=== PATIENT | male | born 1960 | race Caucasian/White ===

== ENCOUNTER 2016-12-25 13:15 | Emergency (ER) | payer BC ==
[~2016-12-25] VITALS: Ht 177.8 cm; Wt 108.0 kg
[2016-12-25 15:20] VITALS: BP 122/89
[2016-12-25] MEDS ORDERED: SODIUM CHLORIDE 0.9% 250 ML IV ONE (15:50)
[2016-12-25] MEDS ORDERED: METOCLOPRAMIDE HCL 5MG/ml INJ 2ml VIAL IV ONE (16:00)
[2016-12-25] MEDS ORDERED: KETOROLAC TROMETH 30 MG/ML 1ML VIAL IV ONE (16:00)
[2016-12-25 16:41] LABS: Basophils # (auto) 0 uL; Basophils % (auto) 0.3 % (0.0-2.0); CONDITION AutoValidated; Eosinophils # (auto) 0.1 uL; Eosinophils % (auto) 0.7 % (0.0-7.0); Hematocrit 44.3 % (41.0-53.0); Lymphocytes % (auto) 11.9 % (10.0-50.0); Mean Corpuscular Hemoglobin 29.4 pg (28.0-32.0); Mean Corpuscular Hgb Conc. 33.8 g/dL (32.0-36.0); Mean Corpuscular Volume 87.1 fL (80.0-100.0); Mean Platelet Volume 7.9 fL (7.4-10.4); Monocytes # (auto) 1.3 uL; Monocytes % (auto) 7.6 % (0.0-12.0); Neutrophils # (auto) 13.3 uL; Neutrophils % (auto) 79.5 % (37.0-80.0); Platelet Count (auto) 279 10^3/uL (140-450); Red Cell Distribution Width 13.6 % (11.6-16.0); White Blood Cell 16.7 10^3/uL (4.4-10.8)
[2016-12-25 16:53] LABS: Calcium 8.5 mg/dL (8.5-10.1); Magnesium 2.2 mg/dL (1.6-2.6); Potassium 3.6 mmol/L (3.5-5.1)
== END 2016-12-25 18:08 | disposition home or self-care (01) ==
LOC: ER 13:15
DX: N45.1 Epididymitis (principal); N43.3 Hydrocele, unspecified; Z88.0 Allergy status to penicillin; Z88.1 Allergy status to other antibiotic agents
CPT/HCPCS: 36415; 76870; 80048; 83735; 85025; 96361; 96374; 96375; 99285; J1885; J2765; J7030

== ENCOUNTER → 2017-01-06 | Outpatient (CLI) | payer BC ==
[2017-01-06 08:39] LABS: Basophils # (auto) 0 uL; Basophils % (auto) 0.7 % (0.0-2.0); CONDITION Y; Eosinophils # (auto) 0.3 uL; Eosinophils % (auto) 4.6 % (0.0-7.0); Hematocrit 44.3 % (41.0-53.0); Hemoglobin 15.1 g/dL (13.5-17.5); Lymphocytes # (auto) 2.5 uL; Lymphocytes % (auto) 36.9 % (10.0-50.0); Mean Corpuscular Hemoglobin 29.4 pg (28.0-32.0); Mean Corpuscular Hgb Conc. 34.1 g/dL (32.0-36.0); Mean Corpuscular Volume 86.3 fL (80.0-100.0); Monocytes # (auto) 0.4 uL; Monocytes % (auto) 6.1 % (0.0-12.0); Neutrophils # (auto) 3.5 uL; Neutrophils % (auto) 51.7 % (37.0-80.0); Platelet Count (auto) 344 10^3/uL (140-450); White Blood Cell 6.8 10^3/uL (4.4-10.8)
[2017-01-06 08:51] LABS: Urine Bilirubin Negative (Negative); Urine Blood Negative /uL (Negative); Urine Color Yellow (Yellow); Urine Glucose Normal (Normal); Urine Ketone Negative (Negative); Urine Nitrite Negative (Negative); Urine RBC <1 /hpf (0 - 3); Urine Urobilinogen Normal (Negative); Urine pH 5.5 (5.0-8.0)
[2017-01-06 09:10] LABS: Albumin 3.7 g/dL (3.4-5.0); Bilirubin, Total 0.3 mg/dL (0.2-1.0); Potassium 3.8 mmol/L (3.5-5.1); Total Protein 7.2 g/dL (6.4-8.2)
== END | disposition home or self-care (01) ==
LOC: LAB 07:34
PROVIDERS: ATTEND Family Medicine
DX: E78.5 Hyperlipidemia, unspecified (principal)
CPT/HCPCS: 36415; 80053; 80061; 81001; 84153; 85025; 87086

== ENCOUNTER → 2019-05-31 | Outpatient (CLI) | payer BC ==
[2019-05-31 10:12] LABS: Urine WBC None Seen /hpf (0 - 3)
[2019-05-31 10:15] LABS: Basophils # (auto) 0.1 uL; Basophils % (auto) 0.9 % (0.0-2.0); Eosinophils # (auto) 0.2 uL; Hematocrit 46.7 % (41.0-53.0); Hemoglobin 15.9 g/dL (13.5-17.5); Lymphocytes % (auto) 33.4 % (10.0-50.0); Mean Corpuscular Hemoglobin 29.9 pg (28.0-32.0); Mean Corpuscular Hgb Conc. 34.1 g/dL (32.0-36.0); Mean Corpuscular Volume 87.5 fL (80.0-100.0); Monocytes # (auto) 0.5 uL; Monocytes % (auto) 7.9 % (0.0-12.0); Neutrophils # (auto) 3.2 uL; Neutrophils % (auto) 53.8 % (37.0-80.0); Nucleated Red Blood Cells % 0.1 %; Platelet Count (auto) 262 10^3/uL (140-450); Red Blood Cells 5.33 10^6/uL (4.5-5.90); Red Cell Distribution Width 13.8 % (11.8-14.3)
[2019-05-31 10:26] LABS: Urine Bacteria NONE SEEN /hpf (None Seen); Urine Blood Negative /uL (Negative); Urine Mucus FEW (None Seen); Urine Specific Gravity 1.022 (1.001-1.035)
[2019-05-31 10:36] LABS: Albumin 3.9 g/dL (3.4-5.0); Anion Gap 8 (5-15); Blood Urea Nitrogen 18 mg/dL (7-18); Calcium 8.7 mg/dL (8.5-10.1); Carbon Dioxide 25 mmol/L (21-32); Chloride 107 mmol/L (98-107); Glucose 118 mg/dL (74-106); Sodium 140 mmol/L (136-145)
[2019-05-31 10:40] LABS: Alanine Aminotransferase 40 U/L (16-61); Alkaline Phosphatase 80 U/L (45-117); Aspartate Aminotransferase 16 U/L (15-37); BUN/Creatinine Ratio 15.9; Bilirubin, Total 0.5 mg/dL (0.2-1.0); Cholesterol 266 mg/dL (< 200); GFR African American 85 mL/min; GFR Non-African American 71 mL/min; HDL Cholesterol 36 mg/dL (40-59); Total Protein 7.6 g/dL (6.4-8.2); Triglycerides 768 mg/dL (< 150)
== END | disposition home or self-care (01) ==
LOC: LAB 10:02
PROVIDERS: ATTEND Nurse Practitioner
DX: E78.5 Hyperlipidemia, unspecified (principal); N40.1 Benign prostatic hyperplasia with lower urinary tract symptoms; Z88.0 Allergy status to penicillin; Z88.1 Allergy status to other antibiotic agents; Z88.8 Allergy status to other drugs, medicaments and biological substances
CPT/HCPCS: 36415; 80053; 80061; 81001; 84153; 84443; 85025

== ENCOUNTER → 2019-09-04 | Outpatient (CLI) | payer BC ==
[2019-09-04 08:12] LABS: Basophils # (auto) 0.1 uL; Basophils % (auto) 0.9 % (0.0-2.0); Eosinophils # (auto) 0.3 uL; Eosinophils % (auto) 4.5 % (0.0-7.0); Hematocrit 45.7 % (41.0-53.0); Hemoglobin 15.3 g/dL (13.5-17.5); Lymphocytes # (auto) 1.6 uL; Mean Corpuscular Hemoglobin 29.6 pg (28.0-32.0); Mean Corpuscular Hgb Conc. 33.6 g/dL (32.0-36.0); Mean Corpuscular Volume 88.3 fL (80.0-100.0); Monocytes # (auto) 0.6 uL; Monocytes % (auto) 10.5 % (0.0-12.0); Neutrophils # (auto) 3.5 uL; Neutrophils % (auto) 58.1 % (37.0-80.0); Platelet Count (auto) 269 10^3/uL (140-450); Red Blood Cells 5.17 10^6/uL (4.5-5.90); Red Cell Distribution Width 13.5 % (11.8-14.3)
[2019-09-04 08:15] LABS: Urine Bacteria NONE SEEN /hpf (None Seen); Urine Blood Negative /uL (Negative); Urine Mucus FEW (None Seen); Urine Specific Gravity 1.022 (1.001-1.035); Urine WBC 1 /hpf (0 - 3)
[2019-09-04 08:44] LABS: Albumin 3.9 g/dL (3.4-5.0); BUN/Creatinine Ratio 12.1; Bilirubin, Total 0.5 mg/dL (0.2-1.0); Calcium 8.9 mg/dL (8.5-10.1); Total Protein 7.4 g/dL (6.4-8.2)
== END | disposition home or self-care (01) ==
LOC: LAB 07:42
PROVIDERS: ATTEND Nurse Practitioner
DX: E78.5 Hyperlipidemia, unspecified (principal)
CPT/HCPCS: 36415; 80053; 80061; 81001; 84443; 85025

== ENCOUNTER → 2019-09-17 | Outpatient (CLI) | payer BC ==
[2019-09-17 08:52] LABS: BUN/Creatinine Ratio 14.6; Calcium 8.8 mg/dL (8.5-10.1); Potassium 3.9 mmol/L (3.5-5.1)
== END | disposition home or self-care (01) ==
LOC: LAB 07:44
PROVIDERS: ATTEND Urology
DX: N40.1 Benign prostatic hyperplasia with lower urinary tract symptoms (principal); N52.9 Male erectile dysfunction, unspecified
CPT/HCPCS: 36415; 80048; 84153

== ENCOUNTER → 2021-08-09 | Outpatient (CLI) | payer BC ==
[2021-08-09 07:54] LABS: Urine Bacteria NONE SEEN /hpf (None Seen); Urine Blood Negative /uL (Negative); Urine Hyaline Cast FEW /lpf (0 - 2); Urine Mucus FEW (None Seen); Urine Specific Gravity 1.022 (1.001-1.035); Urine WBC 1 /hpf (0 - 3)
[2021-08-09 08:11] LABS: Basophils # (auto) 0 10 ^3/uL (0-0.2); Basophils % (auto) 0.6 % (0.0-2.0); Eosinophils # (auto) 0.3 10 ^3/uL (0-0.8); Hematocrit 44.7 % (41.0-53.0); Hemoglobin 14.8 g/dL (13.5-17.5); Lymphocytes # (auto) 2.3 10 ^3/uL (0.4-5.4); Lymphocytes % (auto) 36.1 % (10.0-50.0); Mean Corpuscular Hemoglobin 28.8 pg (28.0-32.0); Mean Corpuscular Hgb Conc. 33.2 g/dL (32.0-36.0); Mean Corpuscular Volume 86.6 fL (80.0-100.0); Monocytes # (auto) 0.5 10 ^3/uL (0-1.3); Monocytes % (auto) 8.3 % (0.0-12.0); Neutrophils # (auto) 3.3 10 ^3/uL (1.6-8.6); Nucleated Red Blood Cells % 0.1 %; Red Blood Cells 5.16 10^6/uL (4.5-5.90); White Blood Cell 6.4 10^3/uL (4.4-10.8)
[2021-08-09 08:35] LABS: Bilirubin, Total 0.5 mg/dL (0.2-1.0); Calcium 9.2 mg/dL (8.5-10.1); Total Protein 7.3 g/dL (6.4-8.2)
== END | disposition home or self-care (01) ==
LOC: LAB 07:23
PROVIDERS: ATTEND Nurse Practitioner
DX: E78.5 Hyperlipidemia, unspecified (principal); I10 Essential (primary) hypertension
CPT/HCPCS: 36415; 80053; 80061; 81001; 85025

== ENCOUNTER → 2023-03-31 | Outpatient (CLI) | payer BC ==
[2023-03-31 09:35] LABS: Basophils # (auto) 0.1 10 ^3/uL (0-0.2); Basophils % (auto) 1.1 % (0.0-2.0); Eosinophils # (auto) 0.2 10 ^3/uL (0-0.8); Eosinophils % (auto) 3.3 % (0.0-7.0); Hematocrit 44.3 % (41.0-53.0); Hemoglobin 15.3 g/dL (13.5-17.5); Lymphocytes # (auto) 1.6 10 ^3/uL (0.4-5.4); Lymphocytes % (auto) 33.7 % (10.0-50.0); Mean Corpuscular Hemoglobin 29.6 pg (28.0-32.0); Mean Corpuscular Hgb Conc. 34.4 g/dL (32.0-36.0); Monocytes # (auto) 0.3 10 ^3/uL (0-1.3); Monocytes % (auto) 7.4 % (0.0-12.0); Neutrophils # (auto) 2.6 10 ^3/uL (1.6-8.6); Neutrophils % (auto) 54.5 % (37.0-80.0); Nucleated Red Blood Cells % 0.1 %; Red Blood Cells 5.16 10^6/uL (4.5-5.90); White Blood Cell 4.7 10^3/uL (4.4-10.8)
[2023-03-31 09:46] LABS: Urine Bacteria NONE SEEN /hpf (None Seen); Urine Blood Negative /uL (Negative); Urine Clarity Clear (Clear); Urine Color Yellow (Yellow); Urine Mucus FEW (None Seen); Urine Protein, UAD Negative (Negative); Urine Specific Gravity 1.019 (1.001-1.035); Urine Urobilinogen Normal (Negative); Urine WBC 2 /hpf (0 - 3); Urine pH 5.5 (5.0-8.0)
[2023-03-31 10:00] LABS: Alanine Aminotransferase 25 U/L (7-40); Alkaline Phosphatase 44 U/L (46-116); Calcium 9.7 mg/dL (8.5-10.1); Carbon Dioxide 28 mmol/L (20-30); Glucose 112 mg/dL (74-106)
[2023-03-31 10:01] LABS: BUN/Creatinine Ratio 9.3 (10.0-20.0); Blood Urea Nitrogen 12 mg/dL (9-23); LDL Cholesterol 140 mg/dL (< 100); Triglycerides 116 mg/dL (< 150)
[2023-03-31 10:02] LABS: Albumin 4.6 g/dL (3.2-4.8); Aspartate Aminotransferase 17 U/L (13-40)
[2023-03-31 10:03] LABS: Cholesterol 198 mg/dL (< 200); HDL Cholesterol 44 mg/dL (40-59); Total Protein 7.2 g/dL (5.7-8.2)
[2023-03-31 10:44] LABS: Anion Gap 6 (5-15); Chloride 108 mmol/L (98-107); Potassium 4.3 mmol/L (3.5-5.1); Sodium 142 mmol/L (136-145)
== END | disposition home or self-care (01) ==
LOC: LAB 08:28
PROVIDERS: ATTEND Nurse Practitioner
DX: I10 Essential (primary) hypertension (principal); E78.5 Hyperlipidemia, unspecified; R73.9 Hyperglycemia, unspecified
CPT/HCPCS: 36415; 80053; 80061; 81001; 83036; 84153; 84443; 85025

== ENCOUNTER → 2023-07-11 | Outpatient (CLI) | payer BC ==
[2023-07-11 07:36] LABS: Basophils # (auto) 0.1 10 ^3/uL (0-0.2); Basophils % (auto) 0.7 % (0.0-2.0); Eosinophils # (auto) 0.2 10 ^3/uL (0-0.8); Eosinophils % (auto) 3.3 % (0.0-7.0); Hematocrit 45.7 % (41.0-53.0); Hemoglobin 15.3 g/dL (13.5-17.5); Lymphocytes # (auto) 1.7 10 ^3/uL (0.4-5.4); Lymphocytes % (auto) 23.6 % (10.0-50.0); Mean Corpuscular Hemoglobin 29.4 pg (28.0-32.0); Mean Corpuscular Hgb Conc. 33.5 g/dL (32.0-36.0); Mean Corpuscular Volume 87.7 fL (80.0-100.0); Monocytes # (auto) 0.6 10 ^3/uL (0-1.3); Monocytes % (auto) 8.5 % (0.0-12.0); Neutrophils # (auto) 4.5 10 ^3/uL (1.6-8.6); Neutrophils % (auto) 63.9 % (37.0-80.0); Nucleated Red Blood Cells % 0.1 %; Red Blood Cells 5.21 10^6/uL (4.5-5.90); Red Cell Distribution Width 14.3 % (11.8-14.3); White Blood Cell 7.1 10^3/uL (4.4-10.8)
[2023-07-11 08:04] LABS: Urine Bacteria NONE SEEN /hpf (None Seen); Urine Blood Negative /uL (Negative); Urine Clarity Clear (Clear); Urine Color Yellow (Yellow); Urine Mucus FEW (None Seen); Urine Protein, UAD Negative (Negative); Urine Specific Gravity 1.023 (1.001-1.035); Urine Urobilinogen Normal (Negative); Urine WBC 1 /hpf (0 - 3); Urine pH 5.5 (5.0-8.0)
[2023-07-11 08:08] LABS: Alanine Aminotransferase 26 U/L (7-40); Albumin 4.7 g/dL (3.2-4.8); Alkaline Phosphatase 60 U/L (46-116); Anion Gap 8 (5-15); Aspartate Aminotransferase 15 U/L (13-40); BUN/Creatinine Ratio 17.9 (10.0-20.0); Blood Urea Nitrogen 22 mg/dL (9-23); Calcium 9.8 mg/dL (8.5-10.1); Carbon Dioxide 24 mmol/L (20-30); Chloride 109 mmol/L (98-107); Glucose 109 mg/dL (74-106); LDL Cholesterol 144 mg/dL (< 100); Potassium 4.1 mmol/L (3.5-5.1); Sodium 141 mmol/L (136-145); Triglycerides 144 mg/dL (< 150)
[2023-07-11 08:09] LABS: Bilirubin, Total 0.4 mg/dL (0.2-1.0); Cholesterol 208 mg/dL (< 200); HDL Cholesterol 46 mg/dL (40-59); Total Protein 7.2 g/dL (5.7-8.2)
== END | disposition home or self-care (01) ==
LOC: LAB 07:10
PROVIDERS: ATTEND Nurse Practitioner
DX: I10 Essential (primary) hypertension (principal); E78.5 Hyperlipidemia, unspecified; R73.9 Hyperglycemia, unspecified
CPT/HCPCS: 36415; 80053; 80061; 81001; 83036; 84153; 84443; 85025

== ENCOUNTER → 2023-09-20 | Outpatient (CLI) | payer BC ==
[2023-09-20 08:50] LABS: Alanine Aminotransferase 37 U/L (7-40); Albumin 4.4 g/dL (3.2-4.8); Alkaline Phosphatase 51 U/L (46-116); Anion Gap 4 (5-15); Aspartate Aminotransferase 21 U/L (13-40); BUN/Creatinine Ratio 16.5 (10.0-20.0); Blood Urea Nitrogen 18 mg/dL (9-23); Calcium 9.4 mg/dL (8.5-10.1); Carbon Dioxide 28 mmol/L (20-30); Chloride 111 mmol/L (98-107); Glucose 111 mg/dL (74-106); LDL Cholesterol 148 mg/dL (< 100); Potassium 4.2 mmol/L (3.5-5.1); Sodium 143 mmol/L (136-145); Triglycerides 101 mg/dL (< 150)
[2023-09-20 08:51] LABS: Bilirubin, Total 0.8 mg/dL (0.2-1.0); Cholesterol 217 mg/dL (< 200); HDL Cholesterol 54 mg/dL (40-59); Total Protein 6.5 g/dL (5.7-8.2)
== END | disposition home or self-care (01) ==
LOC: LAB 07:51
PROVIDERS: ATTEND Nurse Practitioner
DX: E78.5 Hyperlipidemia, unspecified (principal)
CPT/HCPCS: 36415; 80053; 80061

== ENCOUNTER 2024-08-06 09:55 | Inpatient (IN) | payer BC ==
[~2024-08-06] VITALS: Ht 177.8 cm; Wt 103.1 kg
[2024-08-06 10:35] LABS: Basophils # (auto) 0 10 ^3/uL (0-0.2); Basophils % (auto) 0.3 % (0.0-2.0); Eosinophils # (auto) 0 10 ^3/uL (0-0.8); Eosinophils % (auto) 0.2 % (0.0-7.0); Hematocrit 42.4 % (41.0-53.0); Hemoglobin 14.2 g/dL (13.5-17.5); Lymphocytes # (auto) 0.8 10 ^3/uL (0.4-5.4); Lymphocytes % (auto) 7.8 % (10.0-50.0); Mean Corpuscular Hemoglobin 29.6 pg (28.0-32.0); Mean Corpuscular Hgb Conc. 33.4 g/dL (32.0-36.0); Mean Corpuscular Volume 88.5 fL (80.0-100.0); Monocytes # (auto) 0.8 10 ^3/uL (0-1.3); Monocytes % (auto) 8.5 % (0.0-12.0); Neutrophils # (auto) 8.1 10 ^3/uL (1.6-8.6); Neutrophils % (auto) 83.2 % (37.0-80.0); Nucleated Red Blood Cells % 0.1 %; Platelet Count (auto) 290 10^3/uL (140-450); Red Blood Cells 4.79 10^6/uL (4.5-5.90); White Blood Cell 9.8 10^3/uL (4.4-10.8)
[2024-08-06] MEDS: IPRATROPIUM BROM 0.5 MG/2.5ML INH SOL NEB ONE (10:38)
[2024-08-06] MEDS: ALBUTEROL SULF 2.5 MG/0.5ML(0.5%) NEB SOLN NEB ONE (10:38)
[2024-08-06 10:47] VITALS: PULSE 75; RESP 19; O2SAT 98
[2024-08-06] MEDS: SODIUM CHLORIDE 0.9% 1,000 ML IV ONE (10:47)
[2024-08-06] MEDS: methylPREDNISolone SOD SUCC 125 MG/2 ML VL IV ONE (10:50)
[2024-08-06 10:51] LABS: Chloride 101 mmol/L (98-107); Potassium 3.5 mmol/L (3.5-5.1)
[2024-08-06 10:52] LABS: Anion Gap 9 (5-15); Carbon Dioxide 24 mmol/L (20-31)
[2024-08-06 10:53] LABS: Sodium 134 mmol/L (136-145)
[2024-08-06 10:57] LABS: BUN/Creatinine Ratio 11.4 (10.0-20.0); Blood Urea Nitrogen 17 mg/dL (9-23)
[2024-08-06 11:00] LABS: Glucose 121 mg/dL (74-106)
--- NOTE | 2024-08-06 11:00 | ED.PDOC ---
SOB-HPI HPI Comments 63 y/o M, presents to the ED for CC of shortness of breath. Patient states, that he has been experiencing shortness of breath with associated symptoms of cough x8days. Patient relays, that he was seen at urgent care today (08/06/24) when he was relayed to follow up with the emergency department for a further workup, due to his low oxygen saturation. Patient denies social history. Patient denies fever, chills, chest pain, dizziness, or headache. Chief Complaint: Shortness of Breath Time Seen by MD: 10:10 Reviewed notes: Nurses Notes, Medications, Allergies Information Source: Patient, Relative, Spouse Mode of Arrival: Ambulatory Severity: Moderate Timing: Days Duration: Since onset Context: At Rest PE Risk Factors: None History of: None Prehospital treatment: None Modifying Factors: Nothing Associated Signs and Symptoms: Cough Past Medical History PAST MEDICAL HISTORY: Denies Surgical History: Denies all surgeries Family History Family History: Unknown Social History Smoker: Non-Smoker Alcohol: Denies ETOH Use Drugs: Denies Drug Use Lives In: Home Constitutional: denies: chills, diaphoresis, fatigue, fever, malaise, sweats, weakness, others EENTM: denies: blurred vision, double vision, ear bleeding, ear discharge, ear drainage, ear pain, ear ringing, eye pain, eye redness, hearing loss, mouth pain, mouth swelling, nasal discharge, nose bleeding, nose congestion, nose pain, photophobia, tearing, throat pain, throat swelling, voice changes, others Respiratory: reports: cough, shortness of breath; denies: hemoptysis, orthopnea, SOB at rest, SOB with excertion, stridor, wheezing, others Cardiovascular: denies: chest pain, dizzy spells, diaphoresis, Dyspnea on exertion, edema, irregular heart beat, left arm pain, lightheadedness, palpitations, PND, syncope, others Gastrointestinal: denies: abdomen distended, abdominal pain, blood streaked bowels, constipated, diarrhea, dysphagia, difficulty swallowing, hematemesis, melena, nausea, poor appetite, poor fluid intake, rectal bleeding, rectal pain, vomiting, others Genitourinary: denies: burning, dysuria, flank pain, frequency, hematuria, incontinence, penile discharge, penile sore, pain, testicle pain, testicle swelling, urgency, others Neurological: denies: dizziness, fainting, headache, left sided numbness, left sided weakness, numbness, paresthesia, pre-existing deficit, right sided numbness, right sided weakness, seizure, speech problems, tingling, tremors, weakness, others Musculoskeletal: denies: back pain, gout, joint pain, joint swelling, muscle pain, muscle stiffness, neck pain, others Integumetry: denies: bruises, change in color, change in hair/nails, dryness, laceration, lesions, lumps, rash, wounds, others Allergic/Immunocompromised: denies: Difficulty Healing, Frequent Infections, Hives, Itching, others Hematologic/Lymphatic: denies: anemia, blood clots, easy bleeding, easy bruising, swollen glands, others Endocrine: denies: excessive hunger, excessive sweating, excessive thirst, excessive urination, flushing, intolerance to cold, intolerance to heat, unexplained weight gain, unexplained weight loss, others Psychiatric: denies: anxiety, bipolar disorder, depression, hopeless, panic disorder, schizophrenia, sleepless, suicidal, others All Other Systems: Reviewed and Negative Physical Exam General Appearance: Moderate Distress HEENT: Normal ENT Inspection, Pharynx Normal, TMs Normal Neck: Full Range of Motion, Non-Tender, Normal, Normal Inspection Respiratory: Accessory Muscle Use, Respiratory Distress, Wheezing Cardiovascular: No Edema, No JVD, No Murmur, No Gallop, Normal Peripheral Pulses, Regular Rate/Rhythm Breast Exam: Deferred Gastrointestinal: No Organomegaly, Non Tender, No Pulsatile Mass, Normal Bowel Sounds, Soft Genitalia: Deferred Pelvic: Deferred Rectal: Deferred Extremities: No calf tenderness, Normal capillary refill, Normal inspection, Normal range of motion, Non-tender, No pedal edema Musculoskeletal : Apperance: Normal Neurologic: Alert, supervisor machining II-XII nml as Tested, No Motor Deficits, Normal Affect, Normal Mood, No Sensory Deficits Cerebellar Function: NOT DONE Reflexes: NOT DONE Skin: Dry, Normal Color, Warm Peripheral Pulses: 3+ Radial (R), 3+ Radial (L) Lymphatic: No Adenopathy Was a procedure done? Was a procedure done?: No Differential Dx Differential Diagnosis: Anxiety, Asthma, Bronchitis, CHF, COPD, Pneumonia, Respiratory Distress, Pharyngitis, URI X-Ray, Labs, Meds, VS Vital Signs Date Time Temp Pulse Resp B/P (MAP) Pulse Ox O2 Delivery O2 Flow Rate FiO2 08/06/24 12:33 98.3 74 18 100/67 (78) 95 98.3 08/06/24 10:47 75 19 98 Nasal Cannula* 2 28 08/06/24 10:47 98.3 75 19 92/56 (68) 98 98.3 08/06/24 10:40 16 97 Nasal Cannula* 4 36 08/06/24 10:20 97.5 78 14 90/52 (65) 91 08/06/24 10:20 14 91 4.0 Lab Test 08/06/24 10:07 Range/Units White Blood Count 9.8 4.4-10.8 10^3/uL Red Blood Count 4.79 4.5-5.90 10^6/uL Hemoglobin 14.2 13.5-17.5 g/dL Hematocrit 42.4 41.0-53.0 % Mean Corpuscular Volume 88.5 80.0-100.0 fL Mean Corpuscular Hemoglobin 29.6 28.0-32.0 pg Mean Corpuscular Hemoglobin Concent 33.4 32.0-36.0 g/dL Red Cell Distribution Width 14.0 11.8-14.3 % Platelet Count 290 140-450 10^3/uL Mean Platelet Volume 7.0 6.9-10.8 fL Neutrophils (%) (Auto) 83.2 H 37.0-80.0 % Lymphocytes (%) (Auto) 7.8 L 10.0-50.0 % Monocytes (%) (Auto) 8.5 0.0-12.0 % Eosinophils (%) (Auto) 0.2 0.0-7.0 % Basophils (%) (Auto) 0.3 0.0-2.0 % Neutrophils # (Auto) 8.1 1.6-8.6 10 ^3/uL Lymphocytes # (Auto) 0.8 0.4-5.4 10 ^3/uL Monocytes # (Auto) 0.8 0-1.3 10 ^3/uL Eosinophils # (Auto) 0 0-0.8 10 ^3/uL Basophils # (Auto) 0 0-0.2 10 ^3/uL Nucleated Red Blood Cells 0.1 % D-Dimer, Quantitative 0.90 H 0.0-0.49 mg/L FEU Sodium Level 134 L 136-145 mmol/L Potassium Level 3.5 3.5-5.1 mmol/L Chloride Level 101 98-107 mmol/L Carbon Dioxide Level 24 20-31 mmol/L Anion Gap 9 5-15 Blood Urea Nitrogen 17 9-23 mg/dL Creatinine 1.49 H 0.700-1.30 mg/dL Glomerular Filtration Rate Calc 52 >90 mL/min BUN/Creatinine Ratio 11.4 10.0-20.0 Serum Glucose 121 H 74-106 mg/dL Calcium Level 9.0 8.7-10.4 mg/dL Troponin I High Sensitivity 4 </=54 ng/L Current Medications Medications (Trade) Dose Ordered Sig/Sreekanth Route Start Time Stop Time Status Last Admin Methylprednisolone Sodium Succinate (Solu Medrol) 125 mg ONCE ONCE IV 08/06/24 10:30 08/06/24 10:31 DC 08/06/24 10:50 Albuterol (Ventolin Medneb) 5 mg ONCE ONCE NEB 08/06/24 10:30 08/06/24 10:31 DC 08/06/24 10:38 Ipratropium [place] (Atrovent Medneb) 0.5 mg ONCE ONCE NEB 08/06/24 10:30 08/06/24 10:31 DC 08/06/24 10:38 Sodium Chloride 1,000 ml @ 1,000 mls/hr Q1H ONCE IV 08/06/24 10:30 08/06/24 11:29 DC 08/06/24 10:47 Enoxaparin Sodium (Lovenox) 100 mg ONCE ONCE SC 08/06/24 11:45 08/06/24 11:46 DC 08/06/24 11:54 Azithromycin 250 ml @ 125 mls/hr ONCE ONCE IV 08/06/24 11:45 08/06/24 13:44 DC 08/06/24 12:02 Patient alert. Shortness a breath. Unable to take deep breaths. Placed on oxygen. Possible pneumonitis. Was given steroid. Was given breathing treatment. Was given Lovenox. Possibly will need CT chest. No leg swelling. No tachycardia. Cardiac marker within normal limits. Explained to the patient. Continue cardiac monitoring. Time of 1ST Reevaluation: 17:44 Reevaluation 1ST: Unchanged Patient Education/Counseling: Diagnosis, Treatment, Prognosis Family Education/Counseling: No Family Present Additional Information I reviewed the following notes from patient's past medical encounters: 05/17/24 DX: GROIN PAIN The following tests were ordered, and results were reviewed by me: TROPONIN, CBC, D-DIMER, CXR Additional Information was gathered from interviewing the following independent historians: I reviewed and agreed with the following test results read by other providers: CXR I discussed treatment and results with medical personnel and: FAMILY Departure 1 Departure Time of Disposition: 11:37 Impression: Primary Impression: Acute respiratory distress Additional Impression: Pneumonitis Disposition: ADMITTED INPATIENT Admit to: Med Surg Condition: Guarded Critical Care Note Critical Care Time?: Yes (90 min-critical care time only) Stability Stability form required: No Heart Score Heart Score: Heart Score Response (Comments) Value History Slightly Suspicious 0 EKG Normal 0 Age 45-64 1 Risk Factors >3 or Hx ASHD 2 Troponin Normal limit 0 Total 3 I personally scribed for ELESA AGUILA MD ([email or web address]) on 08/06/24 at 11:00. Electronically submitted by Payton Garza ([employer] [facility]). I personally scribed for LEESA AGUILA MD ([email or web address]) on 08/06/24 at 11:53. Electronically submitted by Payton Garza ([email or web address]). I personally scribed for LEESA AGUILA MD ([email or web address]) on 08/06/24 at 11:56. Electronically submitted by Payton Garza ([email or web address]). LEESA AGUILA MD Aug 06, 2024 11:00
[2024-08-06] MEDS: ENOXAPARIN SOD 100 MG/1 ML SYRINGE SC ONE (11:54)
[2024-08-06] MEDS: AZITHROMYCIN 500MG/ 250ML 250 ML IV ONE (11:54)
[2024-08-06] MEDS ORDERED: TEMAZEPAM 15 MG CAP PO PRN (19:00)
[2024-08-06] MEDS ORDERED: ONDANSETRON HCL 4 MG/2 ML VIAL IV PRN (19:00)
[2024-08-06] MEDS ORDERED: ALBUTEROL SULF 2.5 MG/0.5ML(0.5%) NEB SOLN NEB PRN (19:00)
--- NOTE | 2024-08-06 21:29 | DVHHP2 ---
History of Present Illness Reason for Visit: Shortness of breath History of Present Illness 63-year-old male presents for evaluation of shortness for breath. Patient reports a 10 day history of worsening shortness for breath when associated nonproductive cough. On arrival patient was noted to be saturating in the low 90s on room air. He denies chest pain. Reports occasional dizziness. No other acute complaints reported. Past Medical History Hypertension and dyslipidemia Past Surgical History Denies Family History Noncontributory Smoke: No ALCOHOL: none Drugs: None Lives: with Family Review of Systems Review of Systems Review of systems are currently negative otherwise addressed HPI. Allergies: Coded Allergies: Amoxicillin (Verified Allergy, 11/30/12) Penicillins (Verified Allergy, 12/04/12) Rosuvastatin (Verified Allergy, 11/30/12) Medications Current Medications Medications Dose Ordered Sig/Sreekanth Route Start Time Stop Time Status Last Admin Dose Admin Azithromycin 250 ml @ 125 mls/hr DAILY IV 08/07/24 10:00 Albuterol 2.5 mg Q6HPRN PRN NEB 08/06/24 19:00 Temazepam 15 mg QHSP PRN PO 08/06/24 19:00 Ondansetron HCl 4 mg Q4HP PRN IV 08/06/24 19:00 Acetaminophen 650 mg Q6HP PRN PO 08/06/24 19:00 Exam Vital Signs Vital Signs Date Time Temp Pulse Resp B/P (MAP) Pulse Ox O2 Delivery O2 Flow Rate FiO2 08/06/24 20:02 98.5 79 15 122/72 (89) 93 98.5 08/06/24 10:47 Nasal Cannula* 2 28 Exam Gen: 63-year-old male in mild distress Skin: Warm, dry, normal color and texture, no rash. HEENT: Normocephalic atraumatic, mucous membranes moist and pink. Neck: Cervical and supraclavicular nodes normal without enlargement, trachea is midline, thyroid gland is normal without masses. Pulmonary: Diminished breath sounds bilaterally Cardiac: Regular rate and rhythm. No murmur Abdomen: Soft, nontender, nondistended, bowel sounds present all 4 quadrants, no guarding, no rigidity, no organomegaly. Extremities: No cyanosis, clubbing, no edema Neuro: Cranial nerves II through XII grossly intact, normal affect and speech, no focal motor deficits. Labs/Xrays ORDERING PHYSICIAN: SAULO FONTAINE PROCEDURE(s): CXR2 - CHEST TWO VIEWS ROUTINE REASON: COUGH X 8 DAYS W/ SOB ORDER NUMBER(s): [id number], ACCESSION NUMBER(s): [id number] EXAM: XY CHEST TWO VIEWS ROUTINE CLINICAL HISTORY: COUGH X 8 DAYS W/ SOB COMPARISON: None TECHNIQUE: Frontal and lateral view of the chest was obtained FINDINGS: Lines and Tubes: None Lungs: No focal consolidation. Pleura: No effusion. No pneumothorax. Cardiomediastinal contours: Unremarkable Bones: No acute osseous abnormality. IMPRESSION: No acute cardiopulmonary disease. ATED BY: APRYL RENTERIA MD DICTATED DATE/TIME: 08/06/24919 SIGNED BY: APRYL RENTERIA MD SIGNED DATE/TIME: 08/06/24919 Labs Test 08/06/24 19:19 08/06/24 10:07 Range/Units Lactic Acid Level 1.7 0.4-2.0 mmol/L Troponin I High Sensitivity < 3 L </=54 ng/L B-Type Natriuretic Peptide 28.00 0-100 pg/mL White Blood Count 9.8 4.4-10.8 10^3/uL Red Blood Count 4.79 4.5-5.90 10^6/uL Hemoglobin 14.2 13.5-17.5 g/dL Hematocrit 42.4 41.0-53.0 % Mean Corpuscular Volume 88.5 80.0-100.0 fL Mean Corpuscular Hemoglobin 29.6 28.0-32.0 pg Mean Corpuscular Hemoglobin Concent 33.4 32.0-36.0 g/dL Red Cell Distribution Width 14.0 11.8-14.3 % Platelet Count 290 140-450 10^3/uL Mean Platelet Volume 7.0 6.9-10.8 fL Neutrophils (%) (Auto) 83.2 H 37.0-80.0 % Lymphocytes (%) (Auto) 7.8 L 10.0-50.0 % Monocytes (%) (Auto) 8.5 0.0-12.0 % Eosinophils (%) (Auto) 0.2 0.0-7.0 % Basophils (%) (Auto) 0.3 0.0-2.0 % Neutrophils # (Auto) 8.1 1.6-8.6 10 ^3/uL Lymphocytes # (Auto) 0.8 0.4-5.4 10 ^3/uL Monocytes # (Auto) 0.8 0-1.3 10 ^3/uL Eosinophils # (Auto) 0 0-0.8 10 ^3/uL Basophils # (Auto) 0 0-0.2 10 ^3/uL Nucleated Red Blood Cells 0.1 % D-Dimer, Quantitative 0.90 H 0.0-0.49 mg/L FEU Sodium Level 134 L 136-145 mmol/L Potassium Level 3.5 3.5-5.1 mmol/L Chloride Level 101 98-107 mmol/L Carbon Dioxide Level 24 20-31 mmol/L Anion Gap 9 5-15 Blood Urea Nitrogen 17 9-23 mg/dL Creatinine 1.49 H 0.700-1.30 mg/dL Glomerular Filtration Rate Calc 52 >90 mL/min BUN/Creatinine Ratio 11.4 10.0-20.0 Serum Glucose 121 H 74-106 mg/dL Calcium Level 9.0 8.7-10.4 mg/dL Assessment/Plan Assessment/Plan Assessment Acute hypoxic respiratory failure Possible pneumonitis Hypotension Acute kidney injury Plan Admit the patient to Med surge to the hospitalist Echocardiogram pending V/Q scan results pending Resume home medications Med nebs Azithromycin Continue treatment per orders. Plan discussed with: Patient My Orders Orders - SADIE MONTGOMERY AGACNP Procedure Category Date Status Time Azithromycin 500mg/ PHA 08/07/24 In Process 250ml (Zithromax 50 10:00 Rapid Influenza A&B LAB 08/06/24 Logged 18:50 Covid19 Antigen Elisabeth LAB 08/06/24 Logged Albuterol Medneb PHA 08/06/24 In Process (Ventolin Medneb) 19:00 Basic Metabolic Panel LAB 08/07/24 Verified 04:00 Admit ADMIT 08/06/24 Transmitted 18:50 Temazepam (Restoril) PHA 08/06/24 In Process 19:00 Ondansetron Hcl PHA 08/06/24 In Process (Zofran) 19:00 Complete Blood Count LAB 08/07/24 Verified 04:00 Cardiac DIET 08/07/24 Transmitted Diet-2gna,Lofat,Lochol Breakfast Condition: Stable GALILEA 1/28/25 In Process 18:50 Acetaminophen Tablet PHA 08/06/24 In Process (Tylenol Tablet) 19:00 Bedrest With Bathroom GALILEA 08/06/24 In Process Privileg 18:50 Echo 2d Mode Cardiac US 08/06/24 Transmitted DOP 21:23 Enoxaparin Sodium PHA 08/07/24 Verified (Lovenox) 10:00 Date of Service: Aug 06, 2024 Billing Provider: SADIE MONTGOMERY Common Visit Codes: [id number] INP/OBS CARE (HIGH) SADIE MONTGOMERY Aug 06, 2024 21:29
[2024-08-06] MEDS ORDERED: guaiFENesin-DM 100/10mg/5ml SYR PO PRN (21:30)
[2024-08-06 22:09] VITALS: BP 144/80; PULSE 77; RESP 19; TEMP 98.3; O2SAT 95
[2024-08-06 22:44] VITALS: BP 144/80; PULSE 14; PULSE 77; RESP 14; RESP 19; TEMP 98.3; O2SAT 95
[2024-08-06 22:48] LABS: COVID19 ANTIGEN SOFIA FIA NEGATIVE (NEGATIVE); Rapid Influenza A Negative (Negative); Rapid Influenza B Negative (Negative)
[2024-08-07] VITALS (11 sets, daily range): BP systolic 125–161; BP diastolic 73–92; PULSE 65–79; RESP 17–20; TEMP 97.7–98.5; O2SAT 91–97
--- NOTE | 2024-08-07 07:04 | DVHINCON2 ---
Date of service: Aug 07, 2024 Referring Physician Bari Aden NP Reason for Consultation Acute hypoxic respiratory failure History of Present Illness A 63-year-old man with Past Medical History of hypertension and dyslipidemia who presented to ED on 08/06/24 for evaluation of shortness of breath. Patient reported a 10 day history of worsening shortness of breath with associated nonproductive cough. On arrival he was noted to be saturating in the low 90s on room air. Pt denied chest pain. Reported occasional dizziness. No other acute complaints reported. Patient was admitted for further care and pulmonary consultation is requested for evaluation and management of acute hypoxic respiratory failure. Review of Systems: 14-point review of systems negative unless otherwise noted above. Past Medical History: Hypertension and dyslipidemia Past Surgical History: None Medications:Reviewed. Allergies: Amoxicillin, Penicillins, Rosuvastatin Family History: Cardiovascular disease, Cervical cancer Social History: Nonsmoker. No alcohol or illicit drug use. Family History: Cardiovascular disease G8 FATHER Cervical cancer G8 MOTHER Allergies: Coded Allergies: Amoxicillin (Verified Allergy, 11/30/12) Penicillins (Verified Allergy, 12/04/12) Rosuvastatin (Verified Allergy, 11/30/12) Home Meds Active Scripts Doxycycline (Monohydrate) (Doxycycline) 100 Mg Cap, 100 MG PO BID for 7 Days, #14 CAP Prov:ROMAN BILLY SAFETY ADMIN ASSISTANT 08/08/24 Reported Medications Fenofibrate (Fenofibrate) 160 Mg Tab, 1 TAB PO DAILY 08/07/24 Lisinopril (Lisinopril) 40 Mg Tab, 1 TAB PO DAILY 08/07/24 Amlodipine Besylate (Amlodipine Besylate) 5 Mg Tab, 1 TAB PO DAILY 08/07/24 Current Medications Current Medications Medications (Trade) Dose Ordered Sig/Sreekanth Route PRN Reason Start Time Stop Time Status Last Admin Azithromycin 250 ml @ 125 mls/hr DAILY IV 08/07/24 10:00 Albuterol (Ventolin Medneb) 2.5 mg Q6HPRN PRN NEB SHORTNESS OF BREATH 08/06/24 19:00 Temazepam (Restoril) 15 mg QHSP PRN PO FOR INSOMNIA 08/06/24 19:00 Ondansetron HCl (Zofran) 4 mg Q4HP PRN IV NAUSEA / VOMITING 08/06/24 19:00 Acetaminophen (Tylenol Tablet) 650 mg Q6HP PRN PO PAIN SCALE 1-3 OR TEMP>100.4 08/06/24 19:00 Enoxaparin Sodium (Lovenox) 40 mg DAILY SC 08/07/24 10:00 Guaifenesin/ Dextromethorphan (Robitussin-Dm Liquid) 10 ml Q4HP PRN PO FOR COUGH 08/06/24 21:30 Vital Signs Vital Signs Date Time Temp Pulse Resp B/P (MAP) Pulse Ox O2 Delivery O2 Flow Rate FiO2 08/07/24 05:00 98.1 68 19 149/81 (103) 94 98.1 08/07/24 01:58 4.0 36 08/06/24 22:44 Nasal Cannula* Physical Exam Gen.: Patient lying in bed in no apparent distress. On supplemental oxygen. Head: Normocephalic, atraumatic. Eyes: EOMI/PERRLA. Ears: Normal hearing. Normal anatomy. Neck/trachea: Trachea midline, supple. Nose: Normal external anatomy. Mouth: Moist mucous membranes. Chest: Decreased air entry bilaterally. No wheezing or rhonchi. Cardiovascular: Positive S1, positive S2. Regular rate and rhythm. Abdomen: Positive bowel sounds in all 4 quadrants. Soft, non-tender, non- distended. : Deferred. Rectal: Deferred. Skin: Warm, dry. Intact. Extremities: 2+ radial pulses bilaterally. No lower extremity edema. Neuro: Awake, alert, oriented x3. No gross motor or sensory deficits. Cranial nerves II through XII intact. Gait not assessed. Labs/Diagnostic Data Labs Test 08/07/24 05:43 08/06/24 21:35 08/06/24 19:19 08/06/24 10:07 Range/Units Influenza Type A Antigen Negative Negative Influenza Type B Antigen Negative Negative SARS-CoV-2 Antigen (Rapid) Negative NEGATIVE Lactic Acid Level 1.7 0.4-2.0 mmol/L Troponin I High Sensitivity < 3 L </=54 ng/L B-Type Natriuretic Peptide 28.00 0-100 pg/mL Eosinophils (%) (Auto) 0.2 0.0-7.0 % Eosinophils # (Auto) 0 0-0.8 10 ^3/uL Basophils # (Auto) 0 0-0.2 10 ^3/uL Nucleated Red Blood Cells 0.1 % D-Dimer, Quantitative 0.90 H 0.0-0.49 mg/L FEU Assessment Impression: Acute hypoxic respiratory failure Pneumonia, right lower lobe Dependence on supplemental oxygen Atelectasis Hypertension Diarrhea Dyspnea on exertion Obesity BMI 32.6 Ground glass opacities on CT imaging Plan: Supplemental oxygen 4 LPM NC Titrate to keep O2 sats above 92%. Taper O2 as tolerated. V/Q scan shows low probability for pulmonary embolism Plan to obtain CTA chest. Continue antibiotics Incentive spirometry Lomotil for diarrhea Monitor renal function. Monitor electrolytes. Supplement as necessary. Monitor ins and outs. Diet and lifestyle modifications for weight reduction Obesity - complicates all care DVT prophylaxis. Prognosis: Poor given patient's multiple co-morbidities. Rest of plan per hospitalist and other consultants. Thank you, ALISSA Aden., for allowing me to participate in this patient's care. Further recommendations will depend on the patient's clinical course. Please do not hesitate to contact me if you have any questions or concerns. This medical document was created using an electronic medical record system with [employer] dictation system. Although these documentations are being carefully reviewed, there may still be some phonetic and typographical changes. The errors are purely typographical, due to imperfection on the software program, and do not reflect any compromise in the patient's medical care. Addendum: Reviewed CT chest report: IMPRESSION: 1. Atelectasis and consolidation in the right lower lobe, ground-glass opacity in the left upper lobe, may be infectious or inflammatory in nature. Correlate with clinical findings. 2. Additional nonacute findings as detailed above. Complete abx course. Plan discussed with: Patient, Other (CARLINE Lewis/ALISSA Aden/) AMELIA HENSLEY MD Aug 07, 2024 07:04
[2024-08-07 07:19] LABS: Basophils # (auto) 0 10 ^3/uL (0-0.2); Basophils % (auto) 0.1 % (0.0-2.0); Eosinophils # (auto) 0 10 ^3/uL (0-0.8); Hemoglobin 13.4 g/dL (13.5-17.5); Lymphocytes # (auto) 0.9 10 ^3/uL (0.4-5.4); Lymphocytes % (auto) 10.7 % (10.0-50.0); Mean Corpuscular Hemoglobin 29.9 pg (28.0-32.0); Mean Corpuscular Hgb Conc. 34.2 g/dL (32.0-36.0); Mean Corpuscular Volume 87.2 fL (80.0-100.0); Monocytes # (auto) 0.8 10 ^3/uL (0-1.3); Monocytes % (auto) 9.3 % (0.0-12.0); Neutrophils # (auto) 6.7 10 ^3/uL (1.6-8.6); Neutrophils % (auto) 79.9 % (37.0-80.0); Platelet Count (auto) 292 10^3/uL (140-450); Red Blood Cells 4.47 10^6/uL (4.5-5.90); Red Cell Distribution Width 13.8 % (11.8-14.3); White Blood Cell 8.4 10^3/uL (4.4-10.8)
[2024-08-07 07:21] LABS: Calcium 9.3 mg/dL (8.7-10.4); Chloride 106 mmol/L (98-107); Potassium 4.1 mmol/L (3.5-5.1); Sodium 139 mmol/L (136-145)
[2024-08-07 07:22] LABS: Anion Gap 6 (5-15); Carbon Dioxide 27 mmol/L (20-31)
[2024-08-07 07:27] LABS: BUN/Creatinine Ratio 21.6 (10.0-20.0); Blood Urea Nitrogen 21 mg/dL (9-23)
[2024-08-07 07:31] LABS: Glucose 139 mg/dL (74-106)
[2024-08-07] MEDS: ENOXAPARIN SOD 40 MG/0.4 ML SYRINGE SC SCH (09:26)
[2024-08-07] MEDS: AZITHROMYCIN 500MG/ 250ML 250 ML IV SCH (09:26)
--- NOTE | 2024-08-07 12:32 | DVHSR ---
APPROVED REPORT EXAM: Two-dimensional and M-mode echocardiogram with Doppler and color Doppler. Blood Pressure: 149/81 mmHg INDICATION SOB RISK FACTORS Height: 70, Weight: 220 DIMENSIONS LVDd5.2 (3.8-5.7cm)LA (2D)3.8 (1.9-4.0cm)Aortic Root3.4 (2.0-3.7cm) LVDs3.3 (2.5-4.0cm)LA (MM) (1.9-4.0cm)Aortic Cusp Exc1.4 (1.5-2.0cm) EF (%) 65.0 (55-70%)Rt. Atrium (1.9-4.0cm)Asc. Aorta cm IVSd1.1 (0.7-1.1cm)RV (D) (1.8-2.4cm) PWd1.1 (0.7-1.1cm) Mitral Valve MitralMitral Stenosis E wave0.64m/sMV Mean GR.mmHg A wave0.80m/sMV Peak GR.83mmHg E/A ratio0.82D MVAcm2 DECEL [id number] 1/2 [id number] IVRTmsDop MVA3.13cm2 Aortic Valve Aortic ValveAortic Stenosis V11.38m/Ricardo Mean GR.5mmHg V21.51m/Ricardo Peak GR.9mmHg LVOT Diameter2.0 (1.8-2.4cm)Doppler AVA2.87cm2 Pulmonic Valve V20.94m/s Tricuspid Valve TR Velocity2.77m/s [id number] LEFT VENTRICLE The left ventricle is of normal size. Wall thickness is normal. Ejection fraction is normal and is estimated at 65%. There is no gross wall motion abnormalities but endocardial definition is suboptim al. Diastolic function is indeterminate. E to E prime ratio is in the normal range. RIGHT VENTRICLE The right ventricle is mildly dilated in size. Systolic function is normal. ATRIA Both atria are likely of normal size. Intra-atrial septum is not well visualized. MITRAL VALVE There is mild to moderate mitral annular calcification. No significant mitral regurgitation or steno sis. PULMONIC VALVE Likely normal. TRICUSPID VALVE Normal structure and function. There is mild tricuspid regurgitation. PA systolic pressure is estim ated at 35-40 mm Hg. AORTIC VALVE Likely trileaflet in morphology. Leaflets are mildly calcified. No significant stenosis or regurgit ation. GREAT VESSELS The aortic root is of normal size. Proximal ascending aorta is not well visualized. PERICARDIAL EFFUSION There is no significant pericardial effusion. IVC is of normal size and collapses normally with insp iration. Conclusion Normal left ventricular size and systolic function. Ejection fraction is estimated at 65%. Mildly dilated right ventricle with normal systolic function. [id number] mitral annular calcification. Mildly calcified aortic valve with no significant stenosis. PA systolic pressure is estimated at 35-40 mm Hg. No significant pericardial effusion.
--- NOTE | 2024-08-07 12:44 | DVHPN2 ---
Subjective Reports SOB and cough. Pain to Left Hamstring. Reviewed: Care Plan, H&P, Labs, Medications, Previous Orders Changes from previous H/P or p: No Changes General: Per HPI Objective Vitals Vital Signs Date Time Temp Pulse Resp B/P (MAP) Pulse Ox O2 Delivery O2 Flow Rate FiO2 08/07/24 08:33 98.1 65 17 151/73 (99) 93 98.1 08/07/24 08:29 Nasal Cannula* 4 36 Intake/Output Intake and Output 08/07/24 07:00 Intake Total 1350 ml Balance 1350 ml Intake Oral 350 ml IV Total 1000 ml # Voids 2 # Bowel Movements 2 General Appearance: Alert, Oriented X3, Cooperative, mild distress HEENT: Atraumatic, PERRLA Lungs: Clear to auscultation, Normal air movement, Other (NC at 4lpm) Cardiovascular: Normal S1, Normal S2 Abdomen: Normal bowel sounds, Soft, No tenderness, No hepatospenomegaly, No masses Back: Flank Tenderness, Midline Tenderness Musculoskeletal: Normal sensory function, Normal motor function Psych/Mental Status: Mental status NL, Mood NL Medications Current Medications Medications Dose Ordered Sig/Sreekanth Route Start Time Stop Time Status Last Admin Dose Admin Azithromycin 250 ml @ 125 mls/hr DAILY IV 08/07/24 10:00 08/07/24 09:26 125 MLS/HR Albuterol 2.5 mg Q6HPRN PRN NEB 08/06/24 19:00 Temazepam 15 mg QHSP PRN PO 08/06/24 19:00 Ondansetron HCl 4 mg Q4HP PRN IV 08/06/24 19:00 Acetaminophen 650 mg Q6HP PRN PO 08/06/24 19:00 Enoxaparin Sodium 40 mg DAILY SC 08/07/24 10:00 08/07/24 09:26 40 MG Guaifenesin/ Dextromethorphan 10 ml Q4HP PRN PO 08/06/24 21:30 Laboratory Results Laboratory Tests 08/07/24 05:43 Chemistry Test 08/07/24 05:43 Calcium Level 9.3 mg/dL (8.7-10.4) Cardiac Markers Test 08/06/24 19:19 B-Type Natriuretic Peptide 28.00 pg/mL (0-100) Labs and/or images reviewed: Labs reviewed by me, Image(s) reviewed by me Assessment/Plan Assessment/Plan Impression: -Acute Hypoxic Respiratory Failure -Rule out PE/ DVT -Hypertension -Dyslipidemia -? CAP, Gram positive/Gram negative Plan: -VQ scan results pending -BLE Doppler study -Continue ABX -O2 supplementation to keep saturation greater than 92% -check ESR, CRP This medical document was created using an electronic medical record system with [employer] dictation system. Although this document has been carefully reviewed, there may still be some phonetic and typographical errors. These areas are purely typographical due to imperfections of the software programs, and do not reflect any compromise in the patient's medical care. Total time spent with patient discussing and formulating plan of care: 35 minutes. Plan discussed with: Patient, Other (RN) My Orders Orders - ROMAN BILLY NP Procedure Category Date Status Time Bilat Lower Dvt US 08/07/24 Verified 12:29 Erythrocyte LAB 08/07/24 Verified Sedimentation Rate 12:29 C-Reactive Protein LAB 08/07/24 Verified 12:29 Date of Service: Aug 07, 2024 Billing Provider: ROMAN BILLY NP Common Visit Codes: 59993-[id number] INP/OBS CARE(HIGH) ROMAN BILLY NP Aug 07, 2024 12:44
[2024-08-07 13:32] LABS: Erythrocyte Sedimentation Rate 53 mm/hr (0-20)
--- NOTE | 2024-08-07 14:01 | DVH ---
Bilateral lower extremity venous duplex Clinical History: RLE pain Comparison: None Technique: Duplex Doppler evaluation of the deep venous systems of both lower extremities from the common femora l veins to the popliteal veins including color Doppler and spectral/pulsed waveform analysis was perf ormed. Findings: RIGHT SIDE: The common femoral vein demonstrates appropriate compressibility and waveform variability. There is compressibility/patency of the great saphenous vein at the proximal thigh. The femoral vein demonstrates appropriate compressibility and waveform variability. The deep femoral vein demonstrates appropriate compressibility and waveform variability. The popliteal vein demonstrates appropriate compressibility and waveform variability. There is normal compressibility at the tibioperoneal trunk. LEFT SIDE: The common femoral vein demonstrates appropriate compressibility and waveform variability. There is compressibility/patency of the great saphenous vein at the proximal thigh. The femoral vein demonstrates appropriate compressibility and waveform variability. The deep femoral vein demonstrates appropriate compressibility and waveform variability. The popliteal vein demonstrates appropriate compressibility and waveform variability. There is normal compressibility at the tibioperoneal trunk. Impression: No right or left femoropopliteal venous thrombosis.
[2024-08-07] MEDS ORDERED: LISI40TA16 PO (16:20)
[2024-08-07] MEDS ORDERED: FENO160T PO (16:20)
[2024-08-07] MEDS ORDERED: AMLO1TAB22 PO (16:20)
--- NOTE | 2024-08-07 16:42 | DVH ---
NUCLEAR MEDICINE VENTILATION/PERFUSION LUNG SCAN. INDICATION: PULMONARY EMBOLISM COMPARISON: None TECHNIQUE: Following intravenous demonstration of 4.5 millicuries of technetium 99m MAA, and inhala tion of 6.8 mCi of Xe 133 scintigrams were obtained in multiple projections of the lungs. FINDINGS: There is normal uptake of radionuclide on both the ventilation and perfusion portions of the examinat ion. No mismatched perfusion defects are demonstrated. Uptake is normally homogeneous. IMPRESSION: Low probability for PE.
[2024-08-07] MEDS: LISINOPRIL 20 MG TAB PO SCH (17:01)
[2024-08-07] MEDS: DIPHENOXYLATE W/ATROPINE 2.5 MG TAB PO PRN (17:01)
[2024-08-08 01:00] VITALS: BP 112/61; PULSE 64; RESP 18; TEMP 98.8; O2SAT 93
[2024-08-08 05:00] VITALS: BP 136/71; PULSE 68; RESP 19; TEMP 98; O2SAT 91
[2024-08-08 08:30] VITALS: BP 141/87; PULSE 65; RESP 17; TEMP 98; O2SAT 95
[2024-08-08] MEDS: ACETAMINOPHEN 325 MG TAB PO PRN (09:43)
--- NOTE | 2024-08-08 09:59 | DVH ---
CLINICAL INFORMATION: 63 years old, Male; hypoxia. TECHNIQUE: Axial CT imaging of the chest was performed without IV contrast. Sagittal and coronal ref ormatted images were made, stored and reviewed. Evaluation is limited without IV contrast. One or mor e of the following dose reduction techniques were used: Automated exposure control. Adjustment of mA and/or kV according to patient size. CTDIvol = 22.69 mGy DLP = 900.05 mGy-cm COMPARISON: None FINDINGS: Aorta: Scattered atherosclerotic calcification. Mildly ectatic ascending aorta measuring up to 3.8 cm in diameter. Cardiac: Heart size is within normal limits. Dense coronary artery calcification. Mediastinum/red: No mass or adenopathy. Lungs: There is atelectasis and focal consolidation in the right lower lobe. Mild atelectasis in the left lower lobe. Mild ground-glass opacity in the left upper lobe, may be infectious or inflammatory in nature. Respiratory motion artifact limits evaluation for subtle findings. Pulmonary arteries: No gross abnormality. Chest wall: No mass or other abnormality. Upper abdomen: Visualized structures in the upper abdomen are unremarkable. Bones: No fracture or suspicious intraosseous lesions. IMPRESSION: 1. Atelectasis and consolidation in the right lower lobe ground-glass opacity in the left upper lobe, may be infectious or inflammatory in nature. Correlate with clinical findings. 2. Additional nonacute findings as detailed above.
[2024-08-08] MEDS ORDERED: DOXY100C79 PO (11:11)
--- NOTE | 2024-08-08 11:40 | DVHDS2 ---
Discharge Summary Date of Admission Aug 06, 2024 at 18:50 Date of Discharge: Aug 08, 2024 Admitting Diagnosis Acute hypoxic respiratory failure Labs/Diagnostic Data: Laboratory Results Test 08/07/24 05:43 08/06/24 21:35 08/06/24 19:19 08/06/24 10:07 White Blood Count 8.4 10^3/uL (4.4-10.8) Red Blood Count 4.47 10^6/uL (4.5-5.90) Hemoglobin 13.4 g/dL (13.5-17.5) Hematocrit 39.0 % (41.0-53.0) Mean Corpuscular Volume 87.2 fL (80.0-100.0) Mean Corpuscular Hemoglobin 29.9 pg (28.0-32.0) Mean Corpuscular Hemoglobin Concent 34.2 g/dL (32.0-36.0) Red Cell Distribution Width 13.8 % (11.8-14.3) Platelet Count 292 10^3/uL (140-450) Mean Platelet Volume 7.4 fL (6.9-10.8) Neutrophils (%) (Auto) 79.9 % (37.0-80.0) Lymphocytes (%) (Auto) 10.7 % (10.0-50.0) Monocytes (%) (Auto) 9.3 % (0.0-12.0) Eosinophils (%) (Auto) 0.0 % (0.0-7.0) Basophils (%) (Auto) 0.1 % (0.0-2.0) Neutrophils # (Auto) 6.7 10 ^3/uL (1.6-8.6) Lymphocytes # (Auto) 0.9 10 ^3/uL (0.4-5.4) Monocytes # (Auto) 0.8 10 ^3/uL (0-1.3) Eosinophils # (Auto) 0 10 ^3/uL (0-0.8) Basophils # (Auto) 0 10 ^3/uL (0-0.2) Nucleated Red Blood Cells 0.0 % Erythrocyte Sedimentation Rate 53 mm/hr (0-20) Sodium Level 139 mmol/L (136-145) Potassium Level 4.1 mmol/L (3.5-5.1) Chloride Level 106 mmol/L (98-107) Carbon Dioxide Level 27 mmol/L (20-31) Anion Gap 6 (5-15) Blood Urea Nitrogen 21 mg/dL (9-23) Creatinine 0.97 mg/dL (0.700-1.30) Glomerular Filtration Rate Calc 87 mL/min (>90) BUN/Creatinine Ratio 21.6 (10.0-20.0) Serum Glucose 139 mg/dL (74-106) Calcium Level 9.3 mg/dL (8.7-10.4) C-Reactive Protein High Sensitivity 4.43 mg/dL (<1.0) Influenza Type A Antigen Negative (Negative) Influenza Type B Antigen Negative (Negative) SARS-CoV-2 Antigen (Rapid) Negative (NEGATIVE) Lactic Acid Level 1.7 mmol/L (0.4-2.0) Troponin I High Sensitivity < 3 ng/L (</=54) B-Type Natriuretic Peptide 28.00 pg/mL (0-100) D-Dimer, Quantitative 0.90 mg/L FEU (0.0-0.49) Other Laboratory Tests 08/07/24 05:43 Brief Hx & Hospital Course: History of Present Illness 63-year-old male presents for evaluation of shortness for breath. Patient reports a 10 day history of worsening shortness for breath when associated nonproductive cough. On arrival patient was noted to be saturating in the low 90s on room air. He denies chest pain. Reports occasional dizziness. No other acute complaints reported. Course of hospitalization: Patient had V/Q scan which was ordered by the ER physician, found to be without any signs V/Q mismatch. Patient continued to be hypoxic requiring O2 supplementation. Prophylactic antibiotics were placed on the patient. DVT study was also found to be negative. After finding the patient with elevated ESR and CRP, CT scan of the chest was performed which revealed right lower lobe infiltrate. Patient has been weaned off of oxygen supplementation and states that he feels clinically better. Patient will be discharged home and be continued on antibiotic therapy with doxycycline 100 mg p.o. b.i.d. for the next seven days. He was instructed to continue all home medications and follow up his PCP in one week. Patient was agreeable with discharge plan. All questions answered. Physical examination General: Alert and Oriented x3. No acute distress. Well-nourished. Eyes: EOMI. Anicteric. HENT: Moist mucous membranes. Lungs: Clear to auscultation bilaterally. No accessory muscle use. Cardiovascular: Regular rate and rhythm. No murmur. No JVD. Abdomen: Soft, non-tender and non-distended. No palpable masses. Extremities: No edema. Non-tender. Skin: No rashes or lesions. Warm. Neurologic: No focal neurological deficits. CN II-XII grossly intact, but not individually tested. Psychiatric: Cooperative. Appropriate mood and affect. Total time spent with patient discussing and formulating plan of care: 35 minutes. This medical document was created using an electronic medical record system with [employer] system. Although this document has been carefully reviewed, there may still be some phonetic and typographical errors. These areas are purely typographical due to imperfections of the software programs, and do not reflect any compromise in the patient's medical care. Condition at Discharge: Fair Final Diagnosis/Problems List Acute Hypoxic Respiratory Failure Secondary Diagnosis: -Acute Hypoxic Respiratory Failure -Rule out PE/ DVT -Hypertension -Dyslipidemia -CAP, Gram positive/Gram negative Discharge Disposition: Home Discharge Instruct/Medications Diet: Cardiac 2g Na,low cholest Activity: No Restrictions, As Tolerated Follow Up/Referral: PCP in 1-2 weeks Medications: Continue home medications Doxycycline 100mg po BID x 7 days 36 Discharge Statement: "Patient was advised to return to the ER or call 911 if any headaches, dizziness, shortness of breath, chest pain, abdominal pain, bleeding, fevers, or worsening of medical condition. Patient was counseled about treatment plan, medications, possible side effects, patientverbalized understanding. All questions were answered to the best of my ability. This discharge took greater then 30 minutes in planning, reviewing documentation, counseling the patient, and discussing with other team members." ASSESSMENT ASSESSMENT Assessment Acute Hypoxic Respiratory Failure Date of Service: Aug 08, 2024 Billing Provider: ROMAN BILLY NP Common Visit Codes: 66089-DCR/OBS DISCH DAY >30min ROMAN BILLY NP Aug 08, 2024 11:40
== END 2024-08-08 13:06 | disposition home or self-care (01) | DRG 177 ==
LOC: ER 09:55 → OVERFLOW 18:50 → CENTRAL 22:09
PROVIDERS: ADMIT Nurse Practitioner; ATTEND Nurse Practitioner Acute Care
DX: J15.69 Pneumonia due to other Gram-negative bacteria (principal); J96.01 Acute respiratory failure with hypoxia; N17.9 Acute kidney failure, unspecified; J15.9 Unspecified bacterial pneumonia; J98.4 Other disorders of lung; E66.9 Obesity, unspecified; E78.5 Hyperlipidemia, unspecified; I10 Essential (primary) hypertension; Z20.822 Contact with and (suspected) exposure to COVID-19; I95.9 Hypotension, unspecified; Z88.0 Allergy status to penicillin; Z82.49 Family history of ischemic heart disease and other diseases of the circulatory system; Z99.81 Dependence on supplemental oxygen; Z68.32 Body mass index [BMI] 32.0-32.9, adult
CPT/HCPCS: 36415; 71250; 78582; 80048; 83605; 83880; 84484; 85025; 85379; 85652; 86141; 87426; 87804; 93306; 93970; 94640; 96361; 96374; 99291; 99292; G0378

== ENCOUNTER → 2024-09-02 | Outpatient (CLI) | payer BC ==
[~2024-09-02] MED LIST: AMLO1TAB22 PO; DOXY100C79 PO; FENO160T PO; LISI40TA16 PO
== END | disposition home or self-care (01) ==
LOC: LAB 09:45
PROVIDERS: ATTEND Nurse Practitioner
DX: J18.9 Pneumonia, unspecified organism (principal)
CPT/HCPCS: 86635

== ENCOUNTER → 2024-09-13 | Outpatient (CLI) | payer BC ==
[~2024-09-13] MED LIST changes: +ALBUTEROL SULF 2.5 MG/0.5ML(0.5%) NEB SOLN ONE
== END | disposition home or self-care (01) ==
LOC: RT 08:35
PROVIDERS: ATTEND Internal Medicine Pulmonary Disease
DX: R05.9 Cough, unspecified (principal); R06.00 Dyspnea, unspecified
CPT/HCPCS: 94060; 94618; 94727; 94729

== ENCOUNTER → 2024-10-08 | Outpatient (CLI) | payer BC ==
[~2024-10-08] MED LIST changes: -ALBUTEROL SULF 2.5 MG/0.5ML(0.5%) NEB SOLN ONE; +BUPIVACAINE HCL 0.25% P/F 10 ML VIAL ONE; +IOHEXOL 300 MG/ML 100ML BOTTLE IJ ONE; +LIDOCAINE 2%HCL (LOCAL ANESTH.) INJ 10ml MDV ONE; +methylPREDNISolone ACETATE 80 MG/ML VL ONE
--- NOTE | 2024-10-08 11:28 | DVH ---
PROCEDURE: RIGHT Hip Steroid Injection HISTORY: 63 Male pain DOCUMENTATION: Informed consent was obtained and a procedural time out was performed. Technique: Following adequate sterile preparation with chloroprep solution and local anesthesia using 1% lidocai ne, a 22-gauge needle was introduced into the RIGHT hip joint using intermittent fluoroscopic guidan ce. Intra-articular location of the needle tip was confirmed with a small amount of Omnipaque contras t. Subsequently 80 mg of Depo-Medrol and 6 cc of 1% bupivacaine were injected slowly into the joint space. No immediate complications were seen. FINDINGS: There is contrast opacification of the joint capsule. There is washout of contrast upon Alexy roid injection. Impression: Uneventful RIGHT hip injection with Depo-Medrol and bupivacaine as described above.
== END | disposition home or self-care (01) ==
LOC: XYW 09:40
PROVIDERS: ATTEND Physician Assistant Medical
DX: M25.551 Pain in right hip (principal); Z88.0 Allergy status to penicillin; Z88.8 Allergy status to other drugs, medicaments and biological substances; Z82.49 Family history of ischemic heart disease and other diseases of the circulatory system; Z80.8 Family history of malignant neoplasm of other organs or systems
CPT/HCPCS: 20610; 77002; J1010; J2003; J3490; Q9967; 73501

== ENCOUNTER 2024-12-25 13:07 | Outpatient (CLI) | payer MEDICARE ==
[~2024-12-25 13:07] MED LIST changes: -BUPIVACAINE HCL 0.25% P/F 10 ML VIAL ONE; -IOHEXOL 300 MG/ML 100ML BOTTLE IJ ONE; -LIDOCAINE 2%HCL (LOCAL ANESTH.) INJ 10ml MDV ONE; -methylPREDNISolone ACETATE 80 MG/ML VL ONE
[2024-12-25] MEDS ORDERED: BUPIVACAINE HCL 0.25% P/F 10 ML VIAL ONE (13:28)
[2024-12-25] MEDS ORDERED: methylPREDNISolone ACETATE 80 MG/ML VL ONE (13:28)
[2024-12-25] MEDS ORDERED: IOHEXOL 300 MG/ML 100ML BOTTLE IJ ONE (13:29)
[2024-12-25] MEDS ORDERED: LIDOCAINE 2%HCL (LOCAL ANESTH.) INJ 10ml MDV ONE (13:29)
--- NOTE | 2024-12-25 14:47 | DVH ---
PROCEDURE: Joint injection Procedural Personnel Attending physician(s): Frankie Zhao Fellow physician(s): None Resident physician(s): None Advanced practice provider(s): None Pre-procedure diagnosis: Osteoarthritis Post-procedure diagnosis: Same Indication: Pain Additional clinical history: None Complications: No immediate complications. IMPRESSION: Image-guided therapeutic left hip joint injection. Plan: The patient tolerated the procedure well. PROCEDURE SUMMARY: - Left hip joint injection with fluoroscopic guidance - Additional procedure(s):None PROCEDURE DETAILS: Pre-procedure Consent: Informed consent for the procedure including risks, benefits and alternatives was obtained a nd time-out was performed prior to the procedure. Preparation: The site was prepared and draped using maximal sterile barrier technique including cutan eous antisepsis. Anesthesia/sedation Level of anesthesia/sedation: No sedation Anesthesia/sedation administered by: Not applicable Total intra-service sedation time (minutes): Not applicable. Joint injection The patient was positioned supine. Local anesthesia was administered. Under image guidance, a needle was advanced into the joint space, with intra-articular position confirmed with arthrography. Injecti on was performed. Needle: 20 gauge, 3.5 in Contrast administered: 3 mL of Omnipaque 300 Anesthetic administered: 6 mL of bupivacaine Medication administered: 80 mg of Depo-Medrol Findings: Contrast outlines the left hip joint space Closure The needle was removed and hemostasis was achieved with manual compression. A sterile bandage was peter lied. Contrast Contrast agent: Omnipaque 300 Contrast volume (mL): 3 Radiation Dose Fluoroscopy time (minutes): 0.5 Reference air kerma (mGy): 4.6 Kerma area product (uGy-m2): 39.91 Additional Details Additional description of procedure: None Registry event: V/3/g Device used: None Equipment details: None Unique Device Identifiers: Not available Specimens removed: None Estimated blood loss (mL): Less than 10 Standardized report: [email or web address] Attestation Signer name: Frankie Zhao I attest that I was present for the entire procedure. I reviewed the stored images and agree with the report as written.
--- NOTE | 2024-12-25 15:15 | DVH ---
CLINICAL INDICATION: B/L HIP OSTEOARTHRITIS TECHNIQUE: XY L HIP 1V XRAY Comparison: XY R HIP 1V XRAY on DOS: 10/08/24 FINDINGS/IMPRESSION: : There is no evidence of acute fracture or dislocation. Severe degenerative changes of the left hip.
== END 2024-12-25 17:00 | disposition home or self-care (01) ==
LOC: XYW 13:07
PROVIDERS: ATTEND Physician Assistant Medical
DX: M16.0 Bilateral primary osteoarthritis of hip (principal); Z79.899 Other long term (current) drug therapy; Z82.49 Family history of ischemic heart disease and other diseases of the circulatory system
CPT/HCPCS: 20610; 73501; 77002; J1010; J2003; J3490; Q9967

== ENCOUNTER → 2025-03-20 | Outpatient (CLI) | payer MEDICARE ==
[2025-03-20 12:42] LABS: Alanine Aminotransferase 18.0 U/L (7-40); Albumin 4.4 g/dL (3.2-4.8); Alkaline Phosphatase 53.0 U/L (46-116); Bilirubin, Direct 0.1 mg/dL (<0.3); Bilirubin, Total 0.5 mg/dL (0.2-1.0); Total Protein 6.8 g/dL (5.7-8.2)
== END | disposition home or self-care (01) ==
LOC: LAB 11:55
PROVIDERS: ATTEND Podiatrist
DX: B35.1 Tinea unguium (principal)
CPT/HCPCS: 36415; 80076